=== PATIENT | female | born 1975 | race Caucasian/White ===

== ENCOUNTER → 2020-07-27 | Outpatient (CLI) | payer OTHER ==
[~2020-07-27] MED LIST: BUSP7.5T5 PO; CALC500T93 PO; CHOL10003 PO; MULT-449 PO; VENL150C PO
[2020-07-27 10:32] LABS: BASOPHILS % (AUTO) 1 % (0-1); EOSINOPHILS % (AUTO) 2 % (1-7); LYMPHOCYTES % (AUTO) 40 % (22-44); MEAN CORPUSCULAR HEMOGLOBIN 35.9 pg (27.0-34.8); MEAN CORPUSCULAR HGB CONC 34.2 g/dL (32.4-35.8); MEAN PLATELET VOLUME 6.9 fL (7.4-10.4); MONOCYTES % (AUTO) 12 % (2-9); NEUTROPHILS % (AUTO) 44 % (42-75); PLATELET COUNT 451 x10^3/uL (130-400); RED BLOOD COUNT 3.13 x10^6/uL (3.82-5.3); RED CELL DISTRIBUTION WIDTH 12.9 % (9.6-15.2)
[2020-07-27 10:36] LABS: MD NO
[2020-07-27 10:43] LABS: ANION GAP 7 mmol/L (5-15); CALCIUM 9.2 mg/dL (8.5-10.1); CHLORIDE 106 mmol/L (98-107); CREATININE 1.21 mg/dL (0.55-1.02)
== END | disposition home or self-care (01) ==
LOC: STAR 09:00
PROVIDERS: ATTEND Obstetrics & Gynecology Maternal & Fetal Medicine
DX: Z01.812 Encounter for preprocedural laboratory examination (principal); Z20.828 Contact with and (suspected) exposure to other viral communicable diseases; R94.31 Abnormal electrocardiogram [ECG] [EKG]; N94.6 Dysmenorrhea, unspecified
CPT/HCPCS: 80048; 84702; 85025; 87635; 93005

== ENCOUNTER 2020-08-02 13:47 | Observation (INO) | payer OTHER ==
[~2020-08-02] VITALS: Ht 162.6 cm; Wt 53.0 kg
[2020-08-02] MEDS ORDERED: CHLORHEXIDINE 15 ML UDC MM STA (14:08)
[2020-08-02] MEDS ORDERED: CHLORHEXIDINE 15 ML UDC ONE (14:16)
[2020-08-02 15:00] LABS: HCG UR SG 1.012 (1.003-1.030)
[2020-08-02] MEDS ORDERED: ACETAMINOPHEN 500 MG TABLET PO ONE (15:00)
[2020-08-02] MEDS ORDERED: SCOPOLAMINE 1MG PATCH TD SCH (15:00)
[2020-08-02] MEDS ORDERED: DIAZEPAM 5 MG TABLET PO ONE (15:00)
[2020-08-02] MEDS: LACTATED RINGERS 1,000 ML IV SCH (15:24)
[2020-08-02] MEDS ORDERED: NEOSPORIN OINT, 15GM ONE (15:56)
[2020-08-02] MEDS ORDERED: FLUORESCEIN SODIUM 500 MG/5 ML ONE (15:56)
[2020-08-02] MEDS ORDERED: MIDAZOLAM 1 MG/ML, 2ML ONE ×2 (16:07→18:56)
[2020-08-02] MEDS ORDERED: FENTANYL PF 250 MCG/5ML ONE (16:07)
[2020-08-02] MEDS ORDERED: ONDANSETRON 2MG/ML, 2ML ONE (16:15)
[2020-08-02] MEDS ORDERED: ROCURONIUM 10 MG/ML,10ML ONE (16:15)
[2020-08-02] MEDS ORDERED: DEXAMETHASONE 4 MG/ML, 1ML ONE (16:15)
[2020-08-02] MEDS ORDERED: CEFAZOLIN 1,000 MG ONE (16:15)
[2020-08-02] MEDS ORDERED: PROPOFOL 10 MG/ML, 20ML ONE (16:15)
[2020-08-02] MEDS ORDERED: BUPIVACAINE/PF-EPI 0.25% 1:200K INFIL ONE (16:49)
[2020-08-02] MEDS ORDERED: LABETALOL 5MG/ML, 20ML IV PRN (17:00)
[2020-08-02] MEDS ORDERED: PROMETHAZINE 12.5 MG SUPP PR PRN (17:00)
[2020-08-02] MEDS ORDERED: ALBUTEROL SULFATE 2.5 MG/3 ML NPPB PRN (17:00)
[2020-08-02] MEDS ORDERED: ONDANSETRON 2MG/ML, 2ML IVPush PRN (17:00)
[2020-08-02] MEDS ORDERED: EPHEDRINE 50 MG/ML, 1ML IVPush PRN (17:00)
[2020-08-02] MEDS ORDERED: OXYcodone 5 MG/5 ML ORAL.SOL UDC PO PRN (17:00)
[2020-08-02] MEDS ORDERED: MEPERIDINE/PF 25MG/0.5ML IVPush PRN (17:00)
[2020-08-02] MEDS ORDERED: DIPHENHYDRAMINE 50 MG/ML, 1ML IVPush PRN (17:00)
[2020-08-02] MEDS ORDERED: hydrALAzine 20 MG/ML, 1ML IV PRN (17:00)
[2020-08-02] MEDS ORDERED: PROMETHAZINE 25 MG/ML, 1ML IVPush PRN (17:00)
[2020-08-02] MEDS: DIAZEPAM 5 MG/ML, 2ML IVPush PRN ×2 (18:10→18:58)
[2020-08-02] MEDS ORDERED: DIAZEPAM 5 MG/ML, 2ML ONE (18:13)
[2020-08-02] MEDS ORDERED: HYDROmorphone 1 MG/ML, 1ML INJ ONE (18:13)
[2020-08-02] MEDS ORDERED: FENTANYL PF 100 MCG/2ML ONE (18:13)
[2020-08-02] MEDS ORDERED: KETOROLAC 30 MG/1 ML ONE (18:14)
[2020-08-02] MEDS: HYDROmorphone 1 MG/ML, 1ML INJ IVPush PRN ×6 (18:24→21:08)
[2020-08-02] MEDS: FENTANYL PF 100 MCG/2ML IV PRN ×2 (18:31→19:05)
[2020-08-02] MEDS ORDERED: OXYcodone 5 MG/5 ML ORAL.SOL UDC ONE (18:56)
[2020-08-02] MEDS ORDERED: KETOROLAC 30 MG/1 ML IVPush ONE (19:00)
[2020-08-02] MEDS ORDERED: HYDROmorphone 2 MG/ML, 1ML ONE (19:16)
[2020-08-02] MEDS: MIDAZOLAM 1 MG/ML, 2ML IV PRN ×2 (19:23→21:00)
[2020-08-02 20:53] LABS: BASOPHILS % (AUTO) 0 % (0-1); EOSINOPHILS % (AUTO) 0 % (1-7); LYMPHOCYTES % (AUTO) 5 % (22-44); MEAN CORPUSCULAR HEMOGLOBIN 35.2 pg (27.0-34.8); MEAN CORPUSCULAR HGB CONC 33.8 g/dL (32.4-35.8); MEAN PLATELET VOLUME 6.9 fL (7.4-10.4); MONOCYTES % (AUTO) 1 % (2-9); NEUTROPHILS % (AUTO) 94 % (42-75); PLATELET COUNT 398 x10^3/uL (130-400); RED BLOOD COUNT 2.89 x10^6/uL (3.82-5.3); RED CELL DISTRIBUTION WIDTH 12.6 % (9.6-15.2)
[2020-08-02 20:55] LABS: MD NO
[2020-08-02 21:03] LABS: ALANINE AMINOTRANSFERASE 62 U/L (12-78); ALBUMIN 3.4 g/dL (3.4-5.0); ANION GAP 11 mmol/L (5-15); CALCIUM 8.4 mg/dL (8.5-10.1); CHLORIDE 107 mmol/L (98-107); CREATININE 0.98 mg/dL (0.55-1.02)
[2020-08-02 21:05] LABS: ALKALINE PHOSPHATASE 84 U/L (45-117); BILIRUBIN,TOTAL 0.3 mg/dL (0.2-1.0); TOTAL PROTEIN 6.5 g/dL (6.4-8.2)
[2020-08-02 22:23] VITALS: BP 120/68
[2020-08-02] MEDS ORDERED: ONDANSETRON 2MG/ML, 2ML IV PRN (22:30)
[2020-08-02] MEDS ORDERED: morphine SULFATE 10 MG/ML, 1ML IV PRN (22:30)
[2020-08-02] MEDS ORDERED: VENLAFAXINE 75 MG CAP ER PO SCH (23:00)
[2020-08-02] MEDS: KETOROLAC 30 MG/1 ML IVPush SCH (23:11)
[2020-08-03 00:28] VITALS: BP 119/74
[2020-08-03] MEDS: OXYcodone/APAP 5/325MG TABLET PO PRN ×4 (01:24→15:09)
[2020-08-03] MEDS: LACTATED RINGERS 1,000 ML IV SCH (04:22)
[2020-08-03 04:49] VITALS: BP 120/74
[2020-08-03] MEDS: KETOROLAC 30 MG/1 ML IVPush SCH ×2 (06:30→12:00)
[2020-08-03 07:36] VITALS: BP 110/69
[2020-08-03] MEDS ORDERED: VENLAFAXINE 75 MG CAP ER PO SCH (09:00)
[2020-08-03 12:53] VITALS: BP 121/76
[2020-08-03] MEDS ORDERED: OXYC-302 PO (16:01)
[2020-08-03] MEDS ORDERED: IBUP-1222 PO (16:03)
== END 2020-08-03 16:15 | disposition home or self-care (01) ==
LOC: OR 13:47 → INTOOBSV 22:06 → 4NW 22:06 → DCLOUNGE 08-03 16:00
PROVIDERS: ADMIT Obstetrics & Gynecology Maternal & Fetal Medicine; ATTEND Obstetrics & Gynecology Maternal & Fetal Medicine
DX: N94.6 Dysmenorrhea, unspecified (principal); F32.9 Major depressive disorder, single episode, unspecified; F17.210 Nicotine dependence, cigarettes, uncomplicated; Z79.899 Other long term (current) drug therapy
CPT/HCPCS: 36415; 58550; 80053; 81025; 85025; 86850; 86900; 88307; 96361; 96374; 96376; G0378; J0690; J1100; J1170; J1885; J2250; J2405; J2704; J3010; J3360; J7120